=== PATIENT | male | born 1975 | race Caucasian/White ===

== ENCOUNTER 2018-10-15 20:03 | Emergency (ER) | payer OTHER ==
[~2018-10-15] VITALS: Ht 172.7 cm; Wt 90.7 kg
--- OUTSIDE RECORDS SUMMARY | 2018-10-15 20:07 | XMS REPORT ---
Author Author Lopez Marroquin Organization [employer] Address Unknown Phone Unavailable Care Team Providers Care Endbander Name Role Phone Lopez Marroquin CP Unavailable Allergies No Known Allergies Problems Problem Type Condition Code Onset Dates Condition Status Problem Pure hypercholesterolemia E78.00 Active Problem Obstructive sleep apnea G47.33 Active Assessment Obstructive sleep apnea G47.33 Active Assessment Shortness of breath R06.02 Active Medications No Known Medications Results No Known Results Summary Purpose [employer] Submission
--- OUTSIDE RECORDS SUMMARY | 2018-10-15 20:07 | XMS REPORT ---
Author Author Lopez Marroquin Organization [employer] Address Unknown Phone Unavailable Care Team Providers Care Occupational Therapist Rehab Manager Name Role Phone Lopez Marroquin CP Unavailable Allergies, Adverse Reactions, Alerts Substance Reaction Event Type N.K.D.A. Info Not Available Non Drug Allergy Problems Problem Type Condition Code Onset Dates Condition Status Assessment Asthma, unspecified asthma severity, unspecified whether complicated, unspecified whether persistent J45.909 Active Assessment Obstructive sleep apnea G47.33 Active Problem Pure hypercholesterolemia E78.00 Active Problem Obstructive sleep apnea G47.33 Active Assessment Shortness of breath R06.02 Active Assessment Pure hypercholesterolemia E78.00 Active Assessment Precordial pain R07.2 Active Assessment Abnormal electrocardiogram R94.31 Active Medications Medication Code System Code Instructions Start Date End Date Status Dosage Flonase [facility] [address]-93 50 MCG/DOSE Nasally 2 Active 1 spray in each nostril Dymista [facility] [id number] 137-50 MCG/ACT Nasally Twice a day Active 1 spray in each nostril Vital Signs Date/Time: Dec 10, 2017 BMI 40.03 Index Weight 205 lbs Height 5'8 in Cardiac Monitoring Heart Rate 62 /min Blood Pressure Diastolic 70 mm Hg Blood Pressure Systolic 110 mm Hg Results No Known Results Summary Purpose [employer] Submission
--- OUTSIDE RECORDS SUMMARY | 2018-10-15 20:07 | XMS REPORT | Continuity of Care Document ---
Author Author [employer] Address Unknown Phone Unavailable Care Team Providers Care Soils Analyst Name Role Phone [employer] Unavailable Unavailable Problems Problem Status Onset Date Classification Date Reported Comments Source Pure hypercholesterolemia Active Problem 06/23/2018 Ahmed Ahmed Obstructive sleep apnea Active Diagnosis 06/23/2018 Ahmed Ahmed Shortness of breath Active Diagnosis 06/23/2018 Ahmed Ahmed Asthma, unspecified asthma severity, unspecified whether complicated, unspecified whether persistent Active Diagnosis 06/23/2018 Ahmed Ahmed Precordial pain Active Diagnosis 06/23/2018 Ahmed Ahmed Abnormal electrocardiogram Active Diagnosis 06/23/2018 Ahmed Ahmed Medications Medication Details Route Status Patient Instructions Ordering Provider Order Date Source Flonase 1 spray in each nostril Nasally Active 50 MCG/DOSE Nasally 2 Ahmed Ahmed Ahmed Dymista 1 spray in each nostril Nasally Active 137-50 MCG/ACT Nasally Twice a day Ahmed Ahmed Ahmed Allergies, Adverse Reactions, Alerts Substance Category Reaction Severity Reaction type Status Date Reported Comments Source N.K.D.A. Adverse Reaction Info Not Available Adverse Reaction Active 12/10/2017 Ahmed Ahmed Immunizations No Data Provided for This Section Results No Data Provided for This Section Pathology Reports No Data Provided for This Section Diagnostic Reports No Data Provided for This Section Consultation Notes No Data Provided for This Section Discharge Summaries No Data Provided for This Section History and Physicals No Data Provided for This Section Vital Signs Vital Sign Value Date Comments Source Weight 205 12/10/2017 Ahmed Ahmed Heart Rate 62 12/10/2017 Ahmed Ahmed Diastolic (mm Hg) 70 12/10/2017 Ahmed Ahmed Systolic (mm Hg) 110 12/10/2017 Ahmed Ahmed Encounters No Data Provided for This Section Procedures No Data Provided for This Section Assessment and Plan No Data Provided for This Section Plan of Care No Data Provided for This Section Social History No Data Provided for This Section Family History No Data Provided for This Section Advance Directives No Data Provided for This Section Functional Status No Data Provided for This Section
[2018-10-15] MEDS ORDERED: LIDOCAINE 1% W/EPINEPHRINE 20 ML VIAL INJ ONE (20:15)
[2018-10-15] MEDS: TETANUS/DIPHTHERIA TOX ADULT 0.5 ML SYR IM ONE ×2 (21:19→21:29)
[2018-10-15] MEDS ORDERED: LIDOCAINE 2%/ EPINEPHRINE 20ML MDV INJ NR (21:30)
[2018-10-15 21:34] VITALS: BP 136/91
--- NOTE | 2018-10-15 21:59 | Diagnostic Imaging Report ---
Exams: Head, maxillofacial and cervical spine CTs without IV contrast History: Trauma Comparison studies:None Technique: Axial images were obtained from the brain, face and cervical spine. Coronal and sagittal intracranial, maxillofacial and cervical reconstructions obtained from the axial data. Dose modulation, iterative reconstruction, and/or weight based adjustment of the mA/kV was utilized to reduce the radiation dose to as low as reasonably achievable. Intravenous contrast: None Findings: Head CT: Scalp: No abnormalities. Bones: Intact. No fractures or aggressive lytic or blastic lesions. Nonaggressive-appearing 5 mm lytic focus in the right anterior parietal calvarium, possibly small hemangioma. Brain sulci: Appropriate for patient's age. Ventricles: Mild asymmetry of the ventricles with the right lateral ventricle being slightly more prominent than the left which is most likely an anatomical variant for this patient. Parenchyma: No abnormal densities. No masses, acute hemorrhage, acute or chronic vascular insults. Suprasellar region: Mildly expanded and mostly CSF filled sella, a nonspecific finding. Craniocervical junction: The foramen magnum is patent. No Chiari one malformation. Maxillofacial CT: Soft tissues: The anterior nasal vestibule lies outside the imaged [id number] and cannot be assessed. Right periorbital soft tissue swelling with overlying bandage in place. No retained hyperdense foreign body. Bones: No fractures or bony abnormalities. Orbits: Globes:Intact Extra or intraconal abnormalities:None. Paranasal sinuses: Nonspecific bilateral maxillary sinus and left middle ethmoid air cell mucosal thickening. Are maintained sinuses are clear Cervical spine CT: Atlantoaxial articulation: Intact Alignment: Straightened cervical curvature may be positional. No subluxations. Cervicomedullary junction: No abnormalities. The foramen magnum is patent. Soft tissues: No abnormalities. Vertebrae: Normal in density. No fractures, neoplasm or infection. Degenerative changes: Disc height is maintained. Patent canal and foramina. Incidental findings: Noncalcified 2.0 cm hypodense left superior thyroid lobe nodule. Underpneumatized right mastoids which are partially opacified. IMPRESSION: Head CT: 1. No acute abnormalities. 2. Incidental mostly CSF-filled sella, a nonspecific finding. Facial CT: 1. Right periorbital soft tissue hematoma. 2. No maxillofacial fracture. Globe and lens appear intact. No retrobulbar hematoma or retained hyperdense foreign body. Cervical spine CT: 1. No cervical spine fracture or subluxation 2. Incidental 2.0 cm left thyroid lobe nodule. Recommend nonemergent thyroid ultrasound to further evaluate. Please note: Ligament, spinal cord and or vascular abnormalities cannot be excluded on the basis of this examination. Signed by: Dr. Jose C Ivey M.D. on 10/15/2018 9:56 PM
[2018-10-15] MEDS ORDERED: NEOMYCIN/POLYMYX/BACITR OINT 0.9 GM PKT ONE (22:10)
[2018-10-15] MEDS ORDERED: NEOMYCIN/POLYMYX/BACITR OINT 0.9 GM PKT TOP ONE (22:30)
== END 2018-10-15 22:30 | disposition home or self-care (01) ==
LOC: ER 20:03
DX: S01.81XA Laceration without foreign body of other part of head, initial encounter (principal); W22.09XA Striking against other stationary object, initial encounter; Y93.55 Activity, bike riding; Y92.488 Other paved roadways as the place of occurrence of the external cause; J45.909 Unspecified asthma, uncomplicated
CPT/HCPCS: 70450; 70486; 72125; 90714; 96372; 99283